=== PATIENT | male | born 1990 | race Caucasian/White ===

== ENCOUNTER 2017-07-04 09:57 | Emergency (ER) | payer MEDICAID ==
[~2017-07-04] VITALS: Ht 188 cm; Wt 70.3 kg
[2017-07-04 10:08] VITALS: BP 114/72
== END 2017-07-04 11:33 | disposition home or self-care (01) ==
LOC: ER 09:57
DX: S90.111A Contusion of right great toe without damage to nail, initial encounter (principal); W22.8XXA Striking against or struck by other objects, initial encounter; Y93.89 Activity, other specified; Y99.8 Other external cause status; Y92.89 Other specified places as the place of occurrence of the external cause
CPT/HCPCS: 73660

== ENCOUNTER 2017-08-28 07:30 | Emergency (ER) | payer MEDICAID ==
[~2017-08-28] VITALS: Ht 188 cm; Wt 70.3 kg
[2017-08-28 07:39] VITALS: BP 113/82
[2017-08-28] MEDS ORDERED: KETOROLAC TROMETH 60MG/2ML VIAL IM ONE (08:30)
== END 2017-08-28 08:54 | disposition home or self-care (01) ==
LOC: ER 07:34
DX: G89.29 Other chronic pain (principal); M54.5 Low back pain
CPT/HCPCS: 96372; 99283; J1885

== ENCOUNTER 2017-11-22 16:12 | Emergency (ER) | payer MEDICAID ==
[~2017-11-22] VITALS: Ht 188 cm; Wt 72.6 kg
[2017-11-22 16:37] VITALS: BP 138/91
[2017-11-22] MEDS ORDERED: TETANUS-DIPTH-ACEL PERTUSSIS 0.5ML SYRG IM ONE (19:30)
[2017-11-22] MEDS ORDERED: BACITRACIN TOP OINT 1 UD PKG TOP ONE (19:30)
[2017-11-22] MEDS ORDERED: LIDOCAINE 1% HCL (LOCAL ANESTH.) INJ 20ML MDV IJ ONE (19:30)
== END 2017-11-22 20:09 | disposition home or self-care (01) ==
LOC: ER 16:12
DX: S81.811A Laceration without foreign body, right lower leg, initial encounter (principal); W54.0XXA Bitten by dog, initial encounter; Y93.89 Activity, other specified; Y92.89 Other specified places as the place of occurrence of the external cause; Y99.8 Other external cause status
CPT/HCPCS: 12005; 90471; 90715; 99283; J2001